=== PATIENT | male | born 2000 | race African-American/Black ===

== ENCOUNTER 2023-03-08 06:25 | Emergency (ER) | payer BC ==
[2023-03-08 07:51] LABS: CORONAVIRUS COVID-19 NAA NEGATIVE (NEGATIVE)
== END 2023-03-08 08:24 | disposition home or self-care (01) ==
LOC: JD.ED 06:25
DX: J02.9 Acute pharyngitis, unspecified (principal); Z20.822 Contact with and (suspected) exposure to COVID-19
CPT/HCPCS: 0241U; 87651; 99283